=== PATIENT | female | born 1970 | race Caucasian/White ===

== ENCOUNTER → 2022-03-26 11:21 | Outpatient (CLI) | payer OTHER, SELFPAY ==
[2022-03-26 11:24] LABS: MANUAL DIFFERENTIAL MANUAL DIFFERENTIAL (MANUAL DIFF)
[2022-03-26 11:48] LABS: Basophils # 0.1 K/mm3 (0-0.2); Basophils % 1.7 % (0.1-2.0); Eosinophils # 0.5 K/mm3 (0.0-0.4); Eosinophils % 8.4 % (0.1-12.0); Hematocrit 41.4 % (37.0-47.0); Hemoglobin 13.9 g/dL (12.2-16.2); Lymphocytes # 1.3 K/mm3 (0.7-4.5); Lymphocytes % 20.8 % (10-50); Mean Corpuscular HGB Conc 33.7 g/dL (31.8-35.4); Mean Corpuscular Hemoglobin 29.5 pg (27.0-31.2); Mean Corpuscular Volume 87.8 fl (81-99); Monocytes # 0.3 K/mm3 (0.1-1.0); Monocytes % 5.4 % (1.7-9.3); Neutrophils % 63.8 % (37.0-80.0); Platelet Count 166 K/mm3 (142-424); Red Blood Count 4.72 M/mm3 (4.20-5.40); Red Cell Distribution Width 14.6 % (11.5-17.5); White Blood Count 6.3 K/mm3 (4.8-10.8)
[2022-03-26 12:18] LABS: Alanine Aminotransferase 23 U/L (12-78); Albumin Level 4.1 g/dl (3.5-5.0); Albumin/Globulin Ratio 1.7 (1.1-1.8); Alkaline Phosphatase 72 U/L (38-126); Anion Gap 11.1 mEq/L (5-15); Aspartate Amino Transferase 21 U/L (14-36); Bilirubin,Total 0.7 mg/dl (0.2-1.3); Blood Urea Nitrogen 13 mg/dl (7-17); Calcium 9.4 mg/dl (8.4-10.2); Carbon Dioxide 29 mmol/L (22.0-30.0); Chloride 104 mmol/L (98-107); Estimated Glomerular Filt Rate 88 ml/min (>60); GFR (African American) 106 ML/MIN (>60); Globulin 2.4 g/dL (1.3-3.2); Glucose 212 mg/dl (74-100); Potassium 4.1 mmoL/L (3.5-5.1); Sodium 140 mmol/L (136-145); Total Protein,Serum 6.5 g/dl (6.3-8.2)
[2022-03-26 13:46] LABS: Eosinophils % 7 % (0-3); Lymphocytes % 30 % (10-50); Monocytes % 3 % (2-9); Neutrophils % 60 % (42-76); Total Cells Counted 100
[2022-03-26 13:47] LABS: Platelet Estimate Normal; RBC Morphology Normal
== END ==
PROVIDERS: Visit Provider Otolaryngology
DX: Z01.812 Encounter for preprocedural laboratory examination (principal); Z20.822 Contact with and (suspected) exposure to COVID-19; L72.0 Epidermal cyst
CPT/HCPCS: 36415; 80053; 85007; 85014; 85018; 85048; 85049; C9803; U0003; U0005

== ENCOUNTER 2022-03-29 07:33 | Day surgery (SDC) | payer OTHER, SELFPAY ==
[2022-03-24 09:33] VITALS: BMI 39.9
[2022-03-29 08:01] VITALS: BP 138/81; PULSE 90; RESP 18; TEMP 36.1; O2SAT 97
[2022-03-29 08:13] LABS: POC Glucose,Bedside 194 (70-110)
--- NOTE | 2022-03-29 08:16 | ECG_ITS ---
APPROVED REPORT Exam: Resting ECG HR:75 bpm ECG Measurements Heart Rate 75 AXES KS 179 P -10 QRSd 92 QRS 41 QT 378 T 30 QTc 407 Conclusion SINUS RHYTHM NORMAL ECG UNCONFIRMED REPORT Electronically signed by : Rigo Winchester MD 03/29/2022 21:12:24
--- NOTE | 2022-03-29 09:35 | P.PN_ITS ---
[facility] Anesthesia Checklist - Patient Identification Patient Identification: Arm Band - Structural Data Admitted From: Home Planned Operative Procedure/s: Excison of epidermal cyst x5 (right neck, chest x2, upper back x2) Consent for Planned Operative Procedure(s) Verified: Yes Verified Documents: Surgical Consent, History and Physical - NPO Status Verified Time NPO: 00:00 - Additional verifications Anesthesia Reactions: No Hx Blood Transfusions: No Blood Transfusion Reaction: No - Airway Assessment C-Spine Mobility Assessed: Yes (mp2) TMJ Mobility Assessed: Yes Dentition: Good Dentition - Neurological Assessment Level of Consciousness: Awake, Alert - Anesthesia Plan Anesthesia Risk discussed: Yes Anesthesia Plan: Verified ASA Class: III Anesthesia Type: MAC [facility] History I have reviewed the patient's past medical history: Yes Medical History: Reports:: Diabetes Mellitus Type 1, Diabetes Mellitus Type 2, Hypertension Denies:: Cancer, Internal Pacemaker, MRSA, Seizures *Have you ever received a pneumonia vaccine?: No *Have you received a flu vaccine this season?: No Other Medical History: Denies: Blood Transfusion Reaction Anesthesia experience/problems:: nac Other Surgeries: Yes: Cholecystectomy, . No: Pacemaker Amputation: No - *Social History Last grade of school completed: Advanced degree Smoking Status: Never smoker Alcohol Intake: current Alcohol Intake Frequency:: holidays/special occasions only Substance Use Type: denies use *Occupational Status:: employed Housing: house *Travel in the last 8 weeks: None Family Hx:: No significant family history
[2022-03-29 11:17] VITALS: BP 139/73; PULSE 83; RESP 16; TEMP 36.5; O2SAT 98
--- NOTE | 2022-03-29 11:21 | [facility].OPNOTE ---
Date of procedure: 03/29/22 Pre-op Diagnosis:: Multiple epidermal inclusion cysts of the neck, anterior chest, and upper Post-op Diagnosis:: Same Procedure performed:: Excision of dermal inclusion cysts of the right neck, upper chest x2, and upper back x2. All defect measuring 3 to 4 cm. Multilayer closure performed Surgeon:: Jose Fabian MD CONSTRUCTION PROJECT MANAGER:: Ruben Abarca Anesthesia: MAC Estimated blood loss (mL): 0 Operative findings:: Multiple benign looking epidermal inclusion cysts surrounding fibrosis Operative note:: Patient was brought to the operating room and placed supine and after adequate IV sedation, 2% lidocaine with epinephrine was used to locally infiltrate the right neck and upper chest wall just below the sternal notch. She had 2 separate lesions on the upper chest and 1 on the right neck. The areas were then prepped and draped and elliptical incisions made designed to fall in the natural skin. The cysts and the surrounding scar tissue were excised full-thickness down to the underlying subcutaneous fat and then multilayer closure performed using Vicryl 4-0 Vicryl to reapproximate and deep tissue space and then 4-0 Vicryl used to reapproximate the dermal layer and then 5-0 nylon used to close the skin layer. All 3 lesions were excised and closed in a similar fashion and sterile dressings placed. The patient was then positioned on her side and her upper back prepped and draped and 2% lidocaine with epinephrine again used to locally infiltrate the upper back palpable epidermal cysts and these were also elliptically excised full-thickness. The space was then closed with 4-0 Vicryl and the dermal layer also closed with 4-0 Vicryl and then the skin edges reapproximated with 5-0 Monocryl subcuticular closure. Sterile dressings were placed and the procedure concluded. Blood loss was 0 all counts correct and patient was sent to recovery in stable condition Condition: stable Disposition: PACU Complications:: none
[2022-03-29 11:32] VITALS: BP 154/92; PULSE 87; RESP 16; O2SAT 98
[2022-03-29 11:47] VITALS: BP 149/75; PULSE 80; RESP 16; TEMP 36.5; O2SAT 98
== END 2022-03-29 11:47 | disposition home or self-care (01) ==
LOC: OR 07:35
PROVIDERS: PCP Emergency Medicine; Visit Provider Otolaryngology
PROC: (CPT 11424; principal; 2022-03-29 09:00)
DX: L72.0 Epidermal cyst (principal); E11.9 Type 2 diabetes mellitus without complications; Z79.84 Long term (current) use of oral hypoglycemic drugs
CPT/HCPCS: 11424 ×5; 13133 ×2; 13132; 82962; 93005; 96374